=== PATIENT | male | born 1970 | race Caucasian/White ===

== ENCOUNTER 2019-07-18 11:20 | Emergency (ER) | payer MEDICAID ==
[~2019-07-18] VITALS: Ht 185.4 cm; Wt 66.4 kg
[2019-07-18 11:49] VITALS: BP 143/83
[2019-07-18] MEDS ORDERED: LIDOCAINE-MPF 1%, 5ML INFIL ONE (12:00)
[2019-07-18] MEDS ORDERED: CEFTRIAXONE 1,000 MG IM ONE (12:00)
[2019-07-18] MEDS ORDERED: LIDOCAINE-MPF 1%, 2ML ONE (12:09)
[2019-07-18] MEDS ORDERED: CEFTRIAXONE 1,000 MG ONE (12:09)
--- NOTE | 2019-07-18 12:19 | NUR ---
PT HERE FOR SMALL LEFT WOUND TO LEFT POINTER FINGER THAT HAS NOW ERYTHEM WRAPPING AROUND AND SPREADING TOWARDS DISTALLY TO THE WRIST.
[2019-07-18] MEDS ORDERED: CLINDAMYCIN 300 MG CAPSULE ONE (12:22)
--- NOTE | 2019-07-18 12:28 | NUR ---
PT MEDICATED PER EMAR.
[2019-07-18] MEDS ORDERED: CLINDAMYCIN 300 MG CAPSULE PO ONE (12:30)
--- NOTE | 2019-07-18 13:24 | NUR ---
REPORT RECEIVED FROM MILLY PATTEN. IMAGING RESULTS REVIEWED BY MIGUEL COFFMAN ELECTED NOT TO I&D WOUND. CELLULITIS DEMARKATED WITH SKIN MARKER BY MIGUEL AYALA. PT GIVEN DC RX AND EDCUATED REGARDING DC MEDS. PT INSTRUCTED TO RETURN TO ED IN 24 HRS FOR RECHECK. PT AMBULATORY WITH STEADY GAIT. ALL QUESTIONS ANSWERED. Addendum: 07/18/19 at 1327 by YANET REPORT RECEIVED FROM MILLY PATTEN. IMAGING RESULTS REVIEWED BY MIGUEL COFFMAN ELECTED NOT TO I&D WOUND. CELLULITIS DEMARKATED WITH SKIN MARKER BY MIGUEL AYALA. RN GIVEN DC INSTRUCTIONS. PT GIVEN DC RX AND EDCUATED REGARDING DC MEDS. PT INSTRUCTED TO RETURN TO ED IN 24 HRS FOR RECHECK. PT AMBULATORY TO DC WITH STEADY GAIT. ALL QUESTIONS ANSWERED.
== END 2019-07-18 13:25 | disposition home or self-care (01) ==
LOC: ED 13:10
DX: L03.114 Cellulitis of left upper limb (principal); Z85.828 Personal history of other malignant neoplasm of skin
CPT/HCPCS: 73130; 96372; 99283; J0696